=== PATIENT | female | born 1980 | race Caucasian/White ===

== ENCOUNTER 2025-02-08 18:19 | Emergency (ER) | payer OTHER, SELFPAY ==
[2025-02-08 18:22] VITALS: BP 139/83
[2025-02-08 18:52] LABS: ALT (SGPT) 17 U/L (0-35); AST (SGOT) 27 U/L (14-36); Albumin 4.2 g/dl (3.5-5.0); Alkaline Phosphatase 111 U/L (38-126); Blood Urea Nitrogen 9 mg/dl (7-17); Calcium 7.9 mg/dl (8.4-10.2); Carbon Dioxide 32 mmol/L (22-30); Chloride 99 mmol/L (98-107); Glucose 116 mg/dl (70-99); Potassium 4.0 mmol/L (3.5-5.1); Sodium 137 mmol/L (135-145); Total Protein 6.5 g/dl (6.3-8.2); eGFR > 60.00
[2025-02-08 19:08] LABS: Hematocrit 34.9 % (37.0-47.0); Hemoglobin 12.1 g/dL (12.0-16.0); Mean Corp Hgb Conc. 34.7 g/dL (33.0-37.0); Mean Corpuscular Volume 92.1 fL (81.0-99.0); Nucleated Red Blood Cells % 0 %; Platelet Count 225 10^3/uL (130-400); Red Cell Dist. Width 12.1 % (11.5-14.5)
== END 2025-02-08 20:10 | disposition left against medical advice (07) ==
LOC: EMR 18:19
PROVIDERS: Emergency Medicine; FAMILY PHYSICIAN Family Medicine; REFERRING PHYSICIAN Internal Medicine
DX: R53.1 Weakness (principal); R53.83 Other fatigue
CPT/HCPCS: 80053; 85025

== ENCOUNTER 2025-04-05 11:57 | Emergency (ER) | payer OTHER, SELFPAY ==
[2025-04-05] VITALS (8 sets, daily range): BP systolic 114–144; BP diastolic 66–82
[2025-04-05 12:52] LABS: Troponin I < 0.012 ng/ml
[2025-04-05 12:54] LABS: ALT (SGPT) 27 U/L (0-35); AST (SGOT) 31 U/L (14-36); Albumin 4.4 g/dl (3.5-5.0); Alkaline Phosphatase 55 U/L (38-126); Calcium 9.6 mg/dl (8.4-10.2); Carbon Dioxide 29 mmol/L (22-30); Chloride 101 mmol/L (98-107); Glucose 137 mg/dl (70-99); Potassium 3.7 mmol/L (3.5-5.1); Sodium 137 mmol/L (135-145); Total Protein 6.9 g/dl (6.3-8.2); eGFR > 60.00
[2025-04-05 12:56] LABS: Hematocrit 31.7 % (37.0-47.0); Hemoglobin 10.7 g/dL (12.0-16.0); Mean Corp Hgb Conc. 33.8 g/dL (33.0-37.0); Mean Corpuscular Volume 98.8 fL (81.0-99.0); Platelet Count 241 10^3/uL (130-400); Red Cell Dist. Width 17.3 % (11.5-14.5)
[2025-04-05 13:07] LABS: HCG, Serum Qualitative Screen Negative
[2025-04-05 13:21] LABS: Blood Urea Nitrogen 18 mg/dl (7-17)
[2025-04-05 14:30] LABS: Nucleated Red Blood Cells % 0 %
--- NOTE | 2025-04-05 14:44 | ED.GENMED ---
History of Present Illness
General
Chief Complaint: Cardiac Symptoms
Source: patient
Exam Limitations: none
Time Seen by Provider: 04/05/25 14:28
Nursing documentation reviewed up to this point in time: agreed with
History of Present Illness
History of Present Illness:
Patient is a 44-year-old female currently undergoing treatment for breast CA who presents to the emergency department for evaluation of elevated heart rate and palpitations. Patient states that symptoms seem to begin after her most recent infusion
of TCHP which was on Thursday. That evening she states she had an episode of tachycardia, elevated BP, dizziness. Symptoms were improved yesterday however today she was sitting on the couch when she was found to have an heart rate of 144 bpm on her
home monitor. She states that she can feel her heart racing and feels a sense of dizziness again. Her BP apparently was in the 160s/90s at home.
She describes dizziness as more of a lightheaded sensation without any sensation of movement/spinning. She denies any associated chest pain or shortness of breath. No lower leg pain or swelling. No severe back pain. No fever or infectious
symptoms.
Patient states she did have a similar episode after a prior infusion however it resolves after 1 day.
Patient follows with Dr. Emili Walker as her primary oncologist at [facility] was instructed to come to the emergency department today secondary to symptoms.
Past History
Past History
ED Past Medical History: Asthma
ED Past Surgical History: None
Social History
Tobacco: Non-smoker
Alcohol: None
Review of Systems
Review of Systems
Allergies reviewed?: Yes
All Other Systems: ROS reviewed and negative except as documented in HPI and ROS
Phy Exam
Physical Exam
Physical Exam:
Vitals: Mildly hypertensive, tachycardic. Afebrile
General: Patient is well appearing, no acute distress
Skin: Warm and dry, no rashes or lesions
Head: Normocephalic, atraumatic
Eyes: Sclera nonicteric. EOMs intact. No nystagmus.
Throat: Protecting airway
Neck: Normal ROM, no cervical spine tenderness, no meningismus
Cardiac: Tachycardic, normal rhythm, no murmurs. 2+ palpable radial pulses bilaterally
Pulm: Normal respiratory effort, no wheezes, rales, rhonchi heard on exam
Abdomen: No abdominal tenderness.
Extremities: No evidence of cyanosis or edema. 2+ palpable DP pulses bilaterally
Neuro: AAOx3. Grossly intact.
Psychiatric: Normal affect.
Course
Orders/Labs/Results
Orders:
Orders
04/05/25 12:02
Electrocardiogram (*1) Urgent
Reason for Study: Chest Pain
EKG- Treatment ONCE
Test Result ONCE
04/05/25 12:12
Complete Blood Count/With Diff Urgent
Comprehensive Metabolic Panel Urgent
HCG, Serum Qualitative Screen Urgent
Comment: Notify provider if positive test present
TSH Reflex To Free T4 Urgent
Comment: ADD ON
Troponin I Urgent
04/05/25 14:42
Add On- LAB Urgent
Tests Added?: TSH w/ reflex to T4
Cardiac Monitoring- Treatment ONCE
0.9% Sodium Chloride 1000 ml [Nss] 1,000 ml IV BOLUS
Ondansetron Injectable [Zofran] 4 mg IV NOW STA
04/05/25 15:50
D-Dimer Urgent
04/05/25 16:49
CT Chest PE Study Urgent
Comment:
Reason For Exam: Tahcyardia, palpitations, malignancy
Abnormal Lab Results
04/05/25 04/05/25
12:12 15:50
WBC 41.8 H* 10^3/uL
(4.8-10.8)
RBC 3.21 L 10^6/uL
(4.20-5.40)
Hgb 10.7 L g/dL
(12.0-16.0)
Hct 31.7 L %
(37.0-47.0)
MCH 33.3 H pg
(27.0-31.0)
RDW 17.3 H %
(11.5-14.5)
Abs Immat Gran (auto) 1.7 H 10^3/uL
(0-0.05)
Absolute Neuts (auto) 37.9 H 10^3/uL
(1.4-6.5)
Immature Gran % 4.0 H %
(0-0.5)
Neutrophils % 90.8 H %
(42.2-75.2)
Lymphocytes % 4.4 L %
(20.5-51.1)
Monocytes % 0.5 L %
(1.7-9.3)
D-Dimer 0.55 H ug/mlFEU
(0.00-0.50)
BUN 18 H mg/dl
(7-17)
Glucose 137 H mg/dl
(70-99)
04/05/25 12:12
04/05/25 12:12
Vital Signs
Initial and Last Documented VS:
Initial Vital Signs
Temp Pulse Resp BP Pulse Ox
98.2 F 118 16 144/82 100
04/05/25 11:59 04/05/25 11:59 04/05/25 11:59 04/05/25 11:59 04/05/25 11:59
Last Documented Vital Signs
Temp Pulse Resp BP Pulse Ox
98.2 F 96 18 114/75 100
04/05/25 11:59 04/05/25 18:30 04/05/25 18:30 04/05/25 18:30 04/05/25 18:30
MDM/Problems Addressed
Differential Diagnosis Includes:
Not limited to: Medication side effect, acute dehydration, cardiac arrhythmia, orthostasis, pulmonary embolism,
MDM/Problems Addressed:
44-year-old female currently undergoing chemotherapy for breast CA presenting with elevated heart rate and palpitations at home. Apparently heart rate of 140s at home with associated palpitations. No associated chest pain, shortness of breath, lower
extremity swelling. Patient is tachycardic on arrival, however, by my assessment, HR has normalized. Physical exam as above.
Differential includes possible dehydration, medication side effect from recent infusion, etc. Given known malignancy � PE would be on differential, however, feel less likely.
ED plan: labs, troponin, d-dimer, TSH. Will give IV fluids. Will discuss with patients oncologist.
Update: CBC with significant leukocytosis of 41.8. Very mild anemia noted. I suspect this is likely secondary to patient�s recent neulasta injection. Chemistry unremarkable. Troponin undetectable and TSH within normal limits. D-dimer was
unfortunately mildly elevated. Will obtain CTA chest.
Patient has remained on cardiac monitoring without any evidence of arrhythmia and heart rate ranging from 80s - low 100s. She has remained asymptomatic in emergency without any palpitations.
Update: CTA chest without acute findings. Patient made aware of thyroid nodule to have followed up outpatient. I did personally speak with patient�s oncologist, Dr. Patricia German at [facility]. She agrees that leukocytosis likely secondary to
neulasta. Reviewed negative workup in ED. She has remained in a normal sinus rhythm without any palpitations here. Unknown rhythm at home, however, reassuring that she has been in a normal sinus rhythm here. Oncology feels discharge home is
appropriate at this time with continued outpatient follow up.
Symptoms may have been secondary to dehydration vs medication side effect, or anxiety. No evidence of serious cardiac etiology here.
Patient comfortable with plan for discharge home. Strict return precaution discussed, including any tachycardia with associated palpitations.
Chronic conditions affecting care:
Breast CA
Acute Exacerbation and/or Progression of Chronic Illness:
N/A
*Pulse Oximetry
SaO2: 100
Oxygen Mode of Delivery: Room air
Patient hypoxic: no
*EKG
Interpreted by ED Provider?: Yes
EKG Intrepretation Date: 04/05/25
Interpretation: normal
Comparison EKG: no changes
Heart Rate: 99
Rate: normal
Rhythm: sinus
[place]: normal axis
Interval: normal QT interval
QRS Pattern: normal QRS
Ischemia: no ischemia
*Critical Care Note
Total Time (30-74mins, 75-104mins- exclusive of procedures): Not Applicable
Patient Management
Discussion with other providers: Director Communications (Case discussed with patient's oncologist, Dr. Sunshine German at [facility])
ED Attending Note
-
Portions of this chart may have been created with voice recognition software.� Occasional wrong word or��sound alike� substitutions may have occurred due to the inherent limitations of voice recognition software.
Discharge Plan
Departure
Patient Disposition: Home (Routine Discharge)
Date of Disposition: 04/05/25
Time of Disposition: 18:25
Patient with high blood pressure during this ER visit?: Yes
Condition: Good
Discharge Problem:
Palpitations, Tachycardia
Instructions: Palpitations - ED (DC), BLOOD PRESSURE
Prescriptions:
No Action
PNV no.95-ferrous fumarate-FA [] 1 EACH tablet
1 tab PO DAILY
ondansetron HCl [Zofran] 8 mg Tablet
8 mg PO TIDPRN PRN (Reason: nausea)
diphenoxylate-atropine [Lomotil] 2.5-0.025 mg Tablet
1 tab PO DAILYPRN PRN (Reason: diarrhea)
olanzapine 2.5 mg Tablet
2.5 mg PO HS
famotidine [Pepcid] 20 mg Tablet
20 mg PO BID
doxycycline monohydrate 100 mg Capsule
100 mg PO DAILY
lorazepam 1 mg Tablet
1 mg PO Q6HPRN PRN (Reason: anxiety)
nitrofurantoin monohyd/m-cryst [Macrobid] 100 mg Capsule
100 mg PO DAILYPRN PRN (Reason: sexual activities)
simethicone [Gas Relief 80 (simethicone)] 80 MG tablet,chewable
80 mg PO TIDPRN PRN (Reason: gas pains)
omeprazole 20 mg Tablet,Delayed Release (Dr/Ec)
20 mg PO DAILY
Referrals:
Denisa Bruno DO [Family Provider, Family Practice]
Sunshine German MD [Non-Admitting Privileges] - Keep scheduled appt
Activity Restrictions/Additional Instructions:
RETURN TO THE EMERGENCY DEPARTMENT WITH ANY FEVER OR CHILLS, PERSISTENT LIGHTHEADEDNESS/DIZZINESS, ELEVATED HEART RATE WITH PALPITATIONS, CHEST PAIN OR SHORTNESS OF BREATH, WORSENING IN CURRENT SYMPTOMS, OR ANY OTHER CONCERNS
- As discussed�your vital signs including blood pressure and heart rate did normalize while in the emergency department. Your lab work revealed a significantly elevated white blood cell count which is likely secondary to your recent Neulasta
injection. Your CT scan showed no evidence of embolism however did note a nodule on your thyroid gland. Please ensure that this is followed up appropriately.
- Please continue to stay well-hydrated.
- Follow-up with your primary care provider and oncologist for further evaluation/management. If elevated heart rate/palpitations persist you may require a Holter monitor.
Monitor your symptoms closely and return to the emergency department with any acute worsening/new symptoms or any other concerns
Interventions
Interventions:
*Risk Screen - Suicide Last Done: 04/05/25 11:59
*General Assessment Last Done: 04/05/25 17:00
*Neglect/Abuse Screening Last Done: 04/05/25 11:59
*ED- Fall Risk Assessment Last Done: 04/05/25 16:01
*ED COVID-19 Vaccine History Last Done: 04/05/25 14:41
*Nursing Disposition Last Done: 04/05/25 18:58
ED- Pulmonary Assessment Last Done: 04/05/25 14:39
ED- Cardiac Assessment Last Done: 04/05/25 14:39
Discharge Date and Time
Discharge Date/Time: 04/05/25 19:21
Print Language: MONGOLIAN
[2025-04-05] MEDS: ZOFRAN 4 MG IV (15:40)
[2025-04-05] MEDS: NSS 1000 IV (15:43)
[2025-04-05 16:45] LABS: D-Dimer 0.55 ug/mlFEU (0.00-0.50)
== END 2025-04-05 19:21 | disposition home or self-care (01) ==
LOC: EMR 11:57
PROVIDERS: Physician Assistant; EMERGENCY PHYSICIAN Student in an Organized Health Care Education/Training Program; FAMILY PHYSICIAN Family Medicine
DX: R00.2 Palpitations (principal); R00.0 Tachycardia, unspecified; D72.829 Elevated white blood cell count, unspecified; D64.9 Anemia, unspecified; R03.0 Elevated blood-pressure reading, without diagnosis of hypertension; E04.1 Nontoxic single thyroid nodule; C50.919 Malignant neoplasm of unspecified site of unspecified female breast; J45.909 Unspecified asthma, uncomplicated
CPT/HCPCS: 99284; 96374; 96361; 71275; 80053; 84443; 84484; 84703; 85025; 85379; 93005; Q9967